=== PATIENT | female | born 1980 | race Caucasian/White ===

== ENCOUNTER 2018-01-03 17:40 | Emergency (ER) | payer SELFPAY ==
[2018-01-03 18:55] LABS: ABS Basophils 0 10^3/ul (0-0.2); ABS Eosinophils 0.1 10^3/ul (0-0.6); ABS Lymphocytes 0.8 10^3/ul (1.0-4.8); ABS Monocytes 0.8 10^3/ul (0-0.8); ABS Neutrophils 6.7 10^3/ul (1.5-7.7); ABS Nucleated RBC 0 10^3/ul; Eosinophil % 1.2 % (0-6); Hematocrit 40 % (35-47); Hemoglobin 13.4 g/dl (12.0-16.0); Lymphocyte % 8.9 % (25-47); Mean Corpuscular HGB Conc 33 g/dl (31-36); Mean Corpuscular Hemoglobin 29 pg (27-31); Mean Corpuscular Volume 87 fL (80-97); Mean Platelet Volume 7.9 um3 (7.4-10.4); Nucleated Red Blood Cells % 0; Platelet Count 247 10^3/ul (150-450); Red Cell Distribution Width 13 % (10.5-15); White Blood Count 8.4 10^3/ul (3.5-10.8)
[2018-01-03 19:11] LABS: EGFR Non-African American 93.1 (>60)
--- NOTE | 2018-01-03 19:11 | ED ---
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 She states she recently lost her cat and now wants to , as per police. She went to talk to mental health because she thought it would help her be less sad. Pt has suicidal ideation but no plan. She denies any psychiatric issues, or drug/ alcohol use. - History Of Current Complaint Chief Complaint: EDMentalHealth Time Seen by Provider: 01/03/18 18:02 Hx Obtained From: Patient, EMS Onset/Duration: Gradual Onset, Lasting Days - 4, Still Present Timing: Constant Character: Depressed Aggravating Factor(s): Other - Lost her cat Alleviating Factor(s): Nothing Has Suicidal: Reports: Thoughts Has Homicidal: Denies: Thoughts - Allergies/Home Medications Allergies/Adverse Reactions: Allergies Allergy/AdvReac Type Severity Reaction Status Date / Time No Known Allergies Allergy Verified 01/03/18 17:48 Home Medications: Home Medications NK [No Home Medications Reported] 01/03/18 [History Confirmed 01/03/18] PMH/Surg Hx/FS Hx/Imm Hx Cardiovascular History: Denies: Hx Hypertension Psychiatric History: Denies: Hx Suicide Attempt Infectious Disease History: No Infectious Disease History: Denies: Traveled Outside the [place] in Last 30 Days - Family History Known Family History: Negative: Hypertension - Social History Alcohol Use: None Hx Substance Use: No Substance Use Type: Reports: None Hx Tobacco Use: No Smoking Status (MU): Never Smoked Tobacco Review of Systems Negative: Fever Positive: Depressed, Other - SI All Other Systems Reviewed And Are Negative: Yes Physical Exam - Summary Physical Exam Summary: Appearance: Well appearing, no pain distress, tearful Skin: warm, dry, reflects adequate perfusion Head/face: normal Eyes: EOMI, EMIR ENT: normal Neck: supple, non-tender Respiratory: CTA, breath sounds present Cardiovascular: RRR, pulses symmetrical Abdomen: non-tender, soft Bowel: present Musculoskeletal: normal, strength/ROM intact Neuro: normal, sensory motor intact, A&Ox3 Triage Information Reviewed: Yes Vital Signs On Initial Exam: Initial Vitals Temp Pulse Resp BP Pulse Ox 98 F 103 18 142/95 98 01/03/18 17:42 01/03/18 17:42 01/03/18 17:42 01/03/18 17:42 01/03/18 17:42 Vital Signs Reviewed: Yes Diagnostics - Vital Signs Vital Signs Temp Pulse Resp BP Pulse Ox 01/03/18 17:42 98 F 103 18 142/95 98 - Laboratory Lab Results: Lab Results 01/03/18 Range/Units 18:47 WBC 8.4 (3.5-10.8) 10^3/ul RBC 4.60 (4.00-5.40) 10^6/ul Hgb 13.4 (12.0-16.0) g/dl Hct 40 (35-47) % MCV 87 (80-97) fL MCH 29 (27-31) pg MCHC 33 (31-36) g/dl RDW 13 (10.5-15) % Plt Count 247 (150-450) 10^3/ul MPV 7.9 (7.4-10.4) um3 Neut % (Auto) 79.6 (38-83) % Lymph % (Auto) 8.9 L (25-47) % Lassen % (Auto) 10.1 H (0-7) % Eos % (Auto) 1.2 (0-6) % Baso % (Auto) 0.2 (0-2) % Absolute Neuts (auto) 6.7 (1.5-7.7) 10^3/ul Absolute Lymphs (auto) 0.8 L (1.0-4.8) 10^3/ul Absolute Monos (auto) 0.8 (0-0.8) 10^3/ul Absolute Eos (auto) 0.1 (0-0.6) 10^3/ul Absolute Basos (auto) 0 (0-0.2) 10^3/ul Absolute Nucleated RBC 0 10^3/ul Nucleated RBC % 0 Result Diagrams: 01/03/18 18:47 01/03/18 18:47 Lab Statement: Any lab studies that have been ordered have been reviewed, and results considered in the medical decision making process. 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 She states she recently lost her cat and now wants to , as per police. Pt has suicidal ideation but no plan. She denies any psychiatric issues, or drug/alcohol use. A physical exam revealed the pt tearful. Final dx is depression. Pt will be discharged and is agreeable with this plan. - Differential Dx/Clinical Impression Differential Diagnosis/HQI/PQRI: Positive: Anxiety, Depression Provider Diagnosis: Depression Discharge - Sign-Out/Discharge Documenting (check all that apply): Patient Departure - Discharge - Discharge Plan Condition: Stable Disposition: HOME Patient Education Materials: Depression (ED) Referrals: Family, Childrens [Other] (Mon - Becky 8:30 AM - 7:00 PM Fri 8:30 AM - 4:00 PM Sat - Sun Closed ) [facility] [place] [facility]YSICIAN REFERRAL [Outside] - 3 Days Additional Instructions: RETURN TO THE ED WITH NEW OR WORSENING SYMPTOMS. - Billing Disposition and Condition Condition: STABLE Disposition: Home - Attestation Statements Document Initiated by Kangibe: Yes Documenting Scribe: Karen De La Torre Provider For Whom Iwona is Documenting (Include Credential): Cal Beltran MD Scribe Attestation: Karen Kim scribed for Cal Beltran MD on 01/03/18 at 2134. Scribe Documentation Reviewed: Yes Provider Attestation: The documentation as recorded by the Karen wolfe accurately reflects the service I personally performed and the decisions made by , Cal Beltran MD
[2018-01-03 20:07] LABS: Urine Appearance Cloudy; Urine Blood Negative (Negative); Urine Color Yellow; Urine Ketones 1+ (Negative); Urine Protein Negative (Negative); Urine Specific Gravity 1.017 (1.010-1.030); Urine Urobilinogen Negative (Negative)
[2018-01-03 21:45] VITALS: BP 121/64
== END 2018-01-03 21:43 | disposition home or self-care (01) ==
LOC: ED 17:40
DX: F32.9 Major depressive disorder, single episode, unspecified (principal); R45.851 Suicidal ideations
CPT/HCPCS: 36415; 80053; 80307; 80320; 80329; 81003; 84443; 84702; 85025; 99284; G0480